=== PATIENT | female | born 1995 | race Two or more races ===

== ENCOUNTER 2018-12-24 02:22 | Observation (INO) | payer MEDICAID ==
[~2018-12-24] VITALS: Ht 167.6 cm; Wt 113.4 kg
[2018-12-24] MEDS ORDERED: ALUM & MAG HYDROX-SIMETH LIQ(MAALOX) 30 ML PO ONE (03:15)
== END 2018-12-24 04:12 | disposition home or self-care (01) | DRG 566 ==
LOC: LDRP 02:22
PROVIDERS: ADMIT Obstetrics & Gynecology; ATTEND Obstetrics & Gynecology
DX: O26.892 Other specified pregnancy related conditions, second trimester (principal); R12 Heartburn; O21.2 Late vomiting of pregnancy; Z3A.22 22 weeks gestation of pregnancy
CPT/HCPCS: 59025; G0378

== ENCOUNTER 2019-05-28 07:58 | Emergency (ER) | payer MEDICAID ==
[~2019-05-28] VITALS: Ht 170.2 cm; Wt 108.9 kg
[2019-05-28] MEDS ORDERED: SODIUM CHLORIDE 0.9% 1,000 ML IVB ONE (08:23)
[2019-05-28 08:45] LABS: Basophils # (auto) 0.1 uL; Neutrophils # (auto) 4.1 uL
[2019-05-28 08:47] LABS: Basophils % (auto) 0.8 % (0.0-2.0); Eosinophils # (auto) 0.8 uL; Eosinophils % (auto) 10.2 % (0.0-7.0); Hematocrit 38.4 % (36.0-46.0); Hemoglobin 12.2 g/dL (12.2-16.2); Lymphocytes # (auto) 2.8 uL; Lymphocytes % (auto) 34.4 % (10.0-50.0); Mean Corpuscular Hemoglobin 24.5 pg (28.0-32.0); Mean Corpuscular Hgb Conc. 31.8 g/dL (32.0-36.0); Mean Corpuscular Volume 77.1 fL (80.0-100.0); Monocytes # (auto) 0.4 uL; Monocytes % (auto) 5.4 % (0.0-12.0); Neutrophils % (auto) 49.2 % (37.0-80.0); Nucleated Red Blood Cells % 0.1 %; Platelet Count (auto) 287 10^3/uL (140-450); Red Blood Cells 4.98 10^6/uL (4.0-5.20); Red Cell Distribution Width 19.8 % (11.8-14.3); White Blood Cell 8.3 10^3/uL (4.4-10.8)
[2019-05-28 08:49] LABS: Urine Bacteria NONE SEEN /hpf (None Seen); Urine Blood Negative /uL (Negative); Urine Mucus FEW (None Seen); Urine Specific Gravity 1.032 (1.001-1.035); Urine WBC 13 /hpf (0 - 5)
[2019-05-28 09:02] LABS: Albumin 3.5 g/dL (3.4-5.0); BUN/Creatinine Ratio 15.5; Calcium 8.5 mg/dL (8.5-10.1); Potassium 3.6 mmol/L (3.5-5.1)
[2019-05-28 09:04] LABS: Bilirubin, Total 0.2 mg/dL (0.2-1.0); Total Protein 7.1 g/dL (6.4-8.2)
[2019-05-28 10:00] VITALS: BP 117/63
== END 2019-05-28 10:58 | disposition home or self-care (01) ==
LOC: ER 07:58
DX: K80.20 Calculus of gallbladder without cholecystitis without obstruction (principal); R11.2 Nausea with vomiting, unspecified
CPT/HCPCS: 36415; 76705; 80053; 81001; 82150; 83690; 85025; 96360; 99284; J7030